=== PATIENT | male | born 1965 | race Caucasian/White ===

== ENCOUNTER 2019-06-02 11:50 | Emergency (ER) | payer OTHER ==
[2019-06-02 12:11] VITALS: BP 144/82; PULSE 74; TEMP 98.2; BMI 30.1
--- NOTE | 2019-06-02 13:21 | PDOC ---
History of Present Illness - General Chief Complaint: Edema Stated Complaint: LT. FOOT PAIN Time Seen by Provider: 06/02/19 12:19 History Source: Patient Exam Limitations: No Limitations - History of Present Illness Initial Comments: 06/02/19 13:41 53-year-old with history of rheumatoid arthritis and hypertension complaining of left ankle pain since twisting injury while playing soccer 2 months ago. Seen at this ED April 09 with a negative ankle x-ray. 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 Presents complaining of continuous pain and new ankle swelling for 2 days. Denies recent travel, calf pain, calf swelling, shortness of breath, chest pain or any other complaints. Sent to ED by Dr. Vela who is his friend for CT of the ankle. ROS: GENERAL/CONSTITUTIONAL: No fever, chills, weakness, dizziness HEAD, EYES, EARS, NOSE AND THROAT: No changes in vision, No ear pain or discharge, No sore throat CARDIOVASCULAR: No chest pain RESPIRATORY: No shortness of breath or cough GASTROINTESTINAL: No pain, nausea, vomiting, diarrhea or constipation GENITOURINARY: No dysuria MUSCULOSKELETAL: Left ankle pain and swelling, left lower extremity swelling SKIN: No rash NEUROLOGIC: No headache, vertigo, loss of consciousness, or loss of sensation PE: GENERAL: well-appearing, NAD HEAD: NCAT EYES: Pupils equal, round and reactive to light, sclera anicteric, conjunctiva clear ENT: pharynx: no erythema, no exudate, uvula midline NECK: supple CHEST: nontender RESP: clear, no w/r/r CARDIO: rrr, no m/g/r ABD: +BS, soft, nontender, non distended BACK: no midline spinal ttp, no CVAT EXTREMITIES: +1 pitting edema to left lower extremity, left ankle swelling, no erythema, no bony tenderness, no calf tenderness to palpation, positive pedal pulses normal range of motion NEUROLOGICAL: Normal speech, normal gait SKIN: Warm, Dry 06/02/19 13:43 Past History - Past Medical History Allergies/Adverse Reactions: Allergies Allergy/AdvReac Type Severity Reaction Status Date / Time No Known Allergies Allergy Verified 06/02/19 12:06 COPD: No HTN: Yes - Psycho Social/Smoking Cessation Hx Smoking History: Never smoked Have you smoked in the past 12 months: No Hx Alcohol Use: Yes Drug/Substance Use Hx: No *Physical Exam - Vital Signs Last Vital Signs Temp Pulse Resp BP Pulse Ox 98.2 F 74 18 144/82 97 06/02/19 12:06 06/02/19 12:06 06/02/19 12:06 06/02/19 12:06 06/02/19 12:06 Medical Decision Making - Medical Decision Making 06/02/19 13:44 53-year-old male complains of left ankle pain for approximately 2 months which started after twisting injury while playing soccer. Seen here mid-March for ankle pain and had a negative x-ray of the ankle at that time. However over the past 2 days has developed left lower extremity and ankle ankle swelling. Left lower extremity ultrasound to rule out DVT Left ankle CT without contrast Reassess 06/02/19 16:23 Left lower extremity ultrasound negative for DVT Left ankle CT without contrast finding consistent with tenosynovitis, negative for acute bony pathology Patient declines analgesia He agrees to follow-up with PMD Discharge - Discharge Information Problems reviewed: Yes Clinical Impression/Diagnosis: Ankle pain Qualifiers: Chronicity: chronic Laterality: left Qualified Code(s): M25.572 - Pain in left ankle and joints of left foot; G89.29 - Other chronic pain Condition: Stable Disposition: HOME - Admission No - Follow up/Referral Referrals: Isela Ortiz MD [Primary Care Provider] - - Patient Discharge Instructions Additional Instructions: Follow-up with your primary care doctor within 1 week Take ibuprofen 600 mg every 6 hours as needed for pain Return to ED if calf pain, calf swelling, worsening leg swelling, chest pain, shortness of breath or any worsening symptom. - Post Discharge Activity
== END 2019-06-02 16:33 | disposition home or self-care (01) ==
LOC: JERFT 11:50
DX: M25.572 Pain in left ankle and joints of left foot (principal); X58.XXXA Exposure to other specified factors, initial encounter; Y93.66 Activity, soccer; Y92.322 Soccer field as the place of occurrence of the external cause; I10 Essential (primary) hypertension; M06.9 Rheumatoid arthritis, unspecified
CPT/HCPCS: 73700-TC-RT; 93971-TC; 99281-25